=== PATIENT | male | born 1995 | race Caucasian/White ===

== ENCOUNTER 2025-05-20 09:00 | Outpatient (REF) | payer OTHER, SELFPAY ==
--- OUTSIDE RECORDS SUMMARY | 2025-05-20 10:00 | XMS_ITS | Clinical Summary ---
Author Organization [facility] Address [address] [place] [phone] Phone Care Team Providers Care Proposal Director Name Role Phone Peng Lawton MD Primary Care Provider [phone] Allergies Active Allergy Reactions Criticality Noted Date Comments Hydromorphone 05/14/2020 Saccharin 04/16/2020 Morphine 04/16/2020 Medications No known medications Active Problems No known active problems Social History Tobacco Use Types Packs/Day Years Used Date Smoking Tobacco: Never Smokeless Tobacco: Never Alcohol Use Standard Drinks/Week Comments Yes 0 (1 standard drink = 0.6 oz pur e alcohol) occ Education Answer Date Recorded Are you interested in more education? Not on eden e 11/18/2022 Are you concerned about learning? Not on file 11/18/2022 No 11/18/2022 No 11/18/2022 Digital Access Answer Date Recorded No 12/16/2022 No 12/16/2022 No 12/16/2022 Reliable internet access at home? Not on file 12/16/2022 Device with a working camera? Not on file Sex and Gender Information Value Date Recorded Sex Assigned at Not on file Legal Sex Male 8:50 PM EDT Gender Identity Not on file Sexual Orientation Not on file Last Filed Vital Signs Vital Sign Reading Time Taken Comments Blood Pressure - - Pulse - - Temperature - - Respiratory Rate - - Oxygen Saturation - - Inhaled Oxygen Concentration - - Weight 83.9 kg (185 lb) 04/16/2020 11:47 AM EDT Height 167.6 cm (5' 6 ) 04/16/2020 11:47 AM EDT Body Mass Index 29.86 04/16/2020 11:47 AM EDT Plan of Treatment Health Maintenance Due Date Last Done Comments DEPRESSION SCREENING 2008 HEPATITIS C SCREENING 2014 HIV ONE-TIME SCREENING (18-65 YEARS) 2014 SMOKING STATUS SCREENING (Once After 26 Yrs) 2022 INFLUENZA VACCINE (#1) 2025 , 05/18/2020, 05/01/2019, Additional history exists COVID-19 VACCINE ( season) 2025 07/31/2021, 08/24/2020, 08/03/2020 Adult Td,Tdap Booster 05/03/2026 05/03/2016 HEPATITIS A VACCINES Aged Out No long er eligible based on patient's age to complete this topic HIB VACCINES Aged Out No longer eligi ble based on patient's age to complete this topic MENINGOCOCCAL VACCINES (ACWY) Aged Out No longer eligible based on patient's age to complete this topic MENINGOCOCCAL VACCINES (B) Aged Out N o longer eligible based on patient's age to complete this topic PNEUMOCOCCAL VACCINES (0-49 years) Aged Out No longer eligible based on patient's age to complete this topic Medical Devices Not on file [place] [address] [place] [address] TOTAL CHOICE INDEMNITY [employer] TOTAL CHOICE INDEMNITY [employer] TOTAL CHOICE INDEMNITY [employer] TOTAL CHOICE INDEMNITY [employer] TOTAL CHOICE INDEMNITY [employer] TOTAL CHOICE INDEMNITY [employer] TOTAL CHOICE INDEMNITY [employer] TOTAL CHOICE INDEMNITY [employer] TOTAL CHOICE INDEMNITY Care Teams Proposal Director Relationship Specialty Start Date End Date Peng Lawton MD [address] [place] [phone] PCP - General Family Medicine 04/16/20 Additional Source Comments The information contained in this document represents components of the legal health record. It is not the complete legal health record.[facility]
== END 2025-05-20 09:01 | disposition home or self-care (01) ==
LOC: HO.UMASIMG 09:00
PROVIDERS: Visit Provider Emergency Medicine
DX: R10.A2 Flank pain, left side (principal)
CPT/HCPCS: 76770

== ENCOUNTER → 2025-05-20 13:27 | Outpatient (BNV) | payer OTHER, SELFPAY | PROVIDERS: Visit Provider Radiology Diagnostic Radiology | DX: R10.A2 Flank pain, left side (principal) | CPT/HCPCS: 76770 ==